=== PATIENT | male | born 1955 | race Caucasian/White ===

== ENCOUNTER → 2021-03-22 08:27 | Outpatient (CLI) | payer OTHER, SELFPAY ==
--- NOTE | 2021-03-22 | DI.RAD.S_ITS ---
PROCEDURE: XR CHEST 2V INDICATIONS: COUGH TECHNIQUE: 2 views of the chest were acquired. COMPARISON: None. FINDINGS: Surgical changes and devices: None. Lungs and pleura: Lungs are clear. No pleural effusions or pneumothorax. Mediastinum: Mediastinal contours are normal. Heart size is normal. Bones and chest wall: No suspicious bony abnormalities. Age-appropriate bony degenerative changes are seen. Soft tissues appear unremarkable. IMPRESSION: No focal infiltrates are seen. Dictated by: Christopher Cordova M.D. on 03/22/2021 at 8:34 Approved by: Christopher Cordova M.D. on 03/22/2021 at 8:35
== END ==
PROVIDERS: PCP Otolaryngology; Referring Provider Otolaryngology; Visit Provider Otolaryngology
DX: R05.9 Cough, unspecified (principal)
CPT/HCPCS: 71046

== ENCOUNTER → 2022-01-03 07:51 | Outpatient (CLI) | payer OTHER, SELFPAY ==
--- NOTE | 2022-01-03 07:54 | DI.RAD.S_ITS ---
PROCEDURE: XR CERVICAL SPINE 2V OR 3V INDICATIONS: CONTUSION OF OTHER PART OF HEAD TECHNIQUE: 3 view(s) of the cervical spine were acquired. COMPARISON: None. FINDINGS: Bones: No fractures or dislocations to the T1 level. Loss of disc height and degenerative endplate changes are seen at C5-6 and C6-7 levels. Bilateral facet hypertrophic changes are noted throughout cervical spine. The lateral masses of C1 appear intact on the odontoid view. No suspicious bony lesions. Soft tissues: No prevertebral soft tissue swelling. 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 No acute fracture or dislocation. Dictated by: Michael Mcdonough M.D. on 01/03/2022 at 9:45 Approved by: Michael Mcdonough M.D. on 01/03/2022 at 9:45
--- NOTE | 2022-01-03 07:55 | DI.RAD.S_ITS ---
PROCEDURE: XR FACIAL BONES <3V INDICATIONS: CONTUSION OF OTHER PART OF HEAD TECHNIQUE: 3 views of the facial bones were acquired. COMPARISON: None. FINDINGS: Sinuses: Visualized sinuses demonstrate no air-fluid levels or mucosal thickening. Bones: No fractures. No suspicious bony lesions. Orbital rims and zygomatic arches appear intact. Soft tissues: No suspicious soft tissue densities. IMPRESSION: No facial bone or nasal bone fracture. Nasal septum is midline. Paranasal sinuses are well aerated. Dictated by: Michael Mcdonough M.D. on 01/03/2022 at 9:44 Approved by: Michael Mcdonough M.D. on 01/03/2022 at 9:45
== END ==
PROVIDERS: PCP Otolaryngology; Referring Provider Physician Assistant Medical; Visit Provider Physician Assistant Medical
DX: S00.83XA Contusion of other part of head, initial encounter (principal); M50.322 Other cervical disc degeneration at C5-C6 level; X58.XXXA Exposure to other specified factors, initial encounter
CPT/HCPCS: 70140; 72040

== ENCOUNTER → 2022-04-11 07:53 | Outpatient (CLI) | payer OTHER, SELFPAY ==
[2022-04-11 08:25] LABS: Add Manual Diff / Slide Review NO; Basophils Absolute Auto 0 /uL (0-100); Basophils Percent Auto 0.5 % (0-2); Eosinophils Absolute Auto 200 /uL (0-450); Eosinophils Percent Auto 3.9 % (2-4); Hematocrit 46.4 % (41-53); Hemoglobin 15.7 g/dL (13.5-17.5); Lymphocytes Absolute Auto 2200 /uL (1100-4500); Lymphocytes Percent Auto 34.9 % (25-40); Mean Corpuscular HGB Conc 33.9 % (30-36); Mean Corpuscular Hemoglobin 32.1 PG (26-34); Mean Corpuscular Volume 94.7 fL (80-100); Monocytes Absolute Auto 600 /uL (0-900); Monocytes Percent Auto 9.8 % (3-14); Neutrophils Absolute Auto 3200 /uL (1500-7000); Neutrophils Percent Auto 50.9 % (50-75); Platelet Count 170 X10^3/uL (150-400); Red Cell Distribution Width 13.3 % (11.6-14.8); White Blood Cell Count 6.2 X10^3/uL (4.5-11.0)
[2022-04-11 08:46] LABS: Alanine Aminotransferase 62 IU/L (<50); Albumin 4.4 g/dL (3.5-5.0); Albumin Globulin Ratio 1.6 (1.0-2.8); Alkaline Phosphatase 39 U/L (38-126); Aspartate Aminotransferase 37 IU/L (17-59); BUN Creatinine Ratio 18.4 (6-22); Bilirubin Total 0.8 mg/dL (0.2-1.3); Blood Urea Nitrogen 19 mg/dL (9-20); Calcium 9.4 mg/dL (8.4-10.2); Carbon Dioxide 31 mmol/L (22-32); Chloride 103 mmol/L (98-107); Cholesterol 267 mg/dL (140-199); Estimated Glomerular Filt Rate > 60 mL/min (>60); Globulin 2.8 g/dL (1.7-4.1); Glucose 97 mg/dL (80-110); HDL Cholesterol 52 mg/dL (40-60); HEMOLYSIS < 15 (0-50); LDL Cholesterol Calculated 163 mg/dL (<100); Potassium 4.6 mmol/L (3.4-5.1); Sodium 141 mmol/L (137-145); Total Protein 7.2 g/dL (6.3-8.2); Triglycerides 258 mg/dL (35-150)
[2022-04-11 09:02] LABS: Vitamin D 25 Hydroxy (D3) 42.6 ng/mL (30.0-100.0)
[2022-04-11 09:19] LABS: TSH w/ Reflex to FT4 3.52 uIU/mL (0.47-4.68)
[2022-04-11 09:20] LABS: Prostate Specific Antigen 0.344 ng/mL (0.10-4.00)
== END ==
PROVIDERS: PCP Otolaryngology; Referring Provider Physician Assistant Medical; Visit Provider Physician Assistant Medical
DX: E78.5 Hyperlipidemia, unspecified (principal); R73.03 Prediabetes; I10 Essential (primary) hypertension; Z12.5 Encounter for screening for malignant neoplasm of prostate; E55.9 Vitamin D deficiency, unspecified
CPT/HCPCS: 36415; 80053; 80061; 82306; 84153; 84443; 85025

== ENCOUNTER → 2022-11-01 07:30 | Outpatient (CLI) | payer MEDICARE, OTHER, SELFPAY ==
--- NOTE | 2022-11-01 07:37 | DI.US.S_ITS ---
PROCEDURE: US SCROTUM INDICATIONS: LEFT SCROTAL SWELLING TECHNIQUE: Real-time scanning was performed of the scrotum and testicles, with image documentation. Color and pulse Doppler interrogation was performed of both testicles. COMPARISON: None. FINDINGS: Right: Testicle is normal in size at 4.8 x 2.8 x 2.6 cm, and homogenous in echotexture. Epididymis is normal in overall size . Heterogeneous right epididymal echotexture is seen. Focal hypoechoic area involving right epididymal head and measures 7 x 7 x 9 mm in size. Internal vascularity is seen. No hydrocele or varicoceles. Overlying scrotal skin is normal in thickness. Left: Testicle is normal in size at 4.1 x 2.7 x 2.7 cm, and homogeneous in echotexture. Epididymis is normal in overall size and morphology. There is large left hydrocele measures up to 9.7 x 7.7 x 4.7 cm in size. No varicoceles. Doppler: Color and pulse Doppler demonstrate normal and symmetric arterial flow in both testicles. IMPRESSION: 1. Normal appearing bilateral testes. 2. Large left scrotal hydrocele as above. 3. Heterogeneous echotexture of right epididymis with questionable solid hyperechoic lesion involving right epididymal head measures 7 x 7 x 9 mm in size. Clinical correlation and sonographic follow-up is recommended. Dictated by: Michael Mcdonough M.D. on 11/01/2022 at 10:15 Approved by: Michael Mcdonough M.D. on 11/01/2022 at 10:17
[2022-11-01 09:04] LABS: Add Manual Diff / Slide Review NO; Basophils Absolute Auto 0 /uL (0-100); Basophils Percent Auto 0.6 % (0-2); Eosinophils Absolute Auto 400 /uL (0-450); Eosinophils Percent Auto 6.3 % (2-4); Hematocrit 44.9 % (41-53); Hemoglobin 15.6 g/dL (13.5-17.5); Lymphocytes Absolute Auto 2000 /uL (1100-4500); Lymphocytes Percent Auto 34.7 % (25-40); Mean Corpuscular HGB Conc 34.7 % (30-36); Mean Corpuscular Hemoglobin 32.9 PG (26-34); Monocytes Absolute Auto 500 /uL (0-900); Monocytes Percent Auto 9.5 % (3-14); Neutrophils Absolute Auto 2800 /uL (1500-7000); Neutrophils Percent Auto 48.9 % (50-75); Platelet Count 171 X10^3/uL (150-400); Red Blood Cell Count 4.72 X10^6/uL (4.5-5.9); Red Cell Distribution Width 13.6 % (11.6-14.8); White Blood Cell Count 5.7 X10^3/uL (4.5-11.0)
[2022-11-01 09:27] LABS: Alanine Aminotransferase 58 IU/L (<50); Albumin 4.4 g/dL (3.5-5.0); Albumin Globulin Ratio 1.6 (1.0-2.8); Alkaline Phosphatase 41 U/L (38-126); Aspartate Aminotransferase 40 IU/L (17-59); BUN Creatinine Ratio 20.4 (6-22); Bilirubin Total 0.7 mg/dL (0.2-1.3); Blood Urea Nitrogen 19 mg/dL (9-20); Calcium 9.5 mg/dL (8.4-10.2); Carbon Dioxide 25 mmol/L (22-32); Chloride 105 mmol/L (98-107); Cholesterol 283 mg/dL (140-199); Estimated Glomerular Filt Rate > 60 mL/min (>60); Globulin 2.8 g/dL (1.7-4.1); Glucose 90 mg/dL (80-110); HDL Cholesterol 47 mg/dL (40-60); HEMOLYSIS 21 (0-50); LDL Cholesterol Calculated 170 mg/dL (<100); Potassium 4.5 mmol/L (3.4-5.1); Sodium 139 mmol/L (137-145); Total Protein 7.2 g/dL (6.3-8.2); Triglycerides 329 mg/dL (35-150)
[2022-11-01 09:41] LABS: Vitamin D 25 Hydroxy (D3) 39.5 ng/mL (30.0-100.0)
[2022-11-01 09:53] LABS: Prostate Specific Antigen 0.465 ng/mL (0.10-4.00)
[2022-11-02 00:05] LABS: Hemoglobin A1C% w Est Avg Glu 5.5 % (4.0-6.0)
== END ==
PROVIDERS: PCP Otolaryngology; Referring Provider Specialist; Visit Provider Specialist
DX: N48.0 Leukoplakia of penis (principal); N43.3 Hydrocele, unspecified; Z12.5 Encounter for screening for malignant neoplasm of prostate; E78.5 Hyperlipidemia, unspecified; I10 Essential (primary) hypertension; E55.9 Vitamin D deficiency, unspecified; R73.03 Prediabetes
CPT/HCPCS: 36415; 76870; 80053; 80061; 82306; 83036; 84153; 84439; 84443; 85025; G0103

== ENCOUNTER 2023-01-01 07:58 | Day surgery (SDC) | payer MEDICARE, OTHER, SELFPAY ==
[2022-12-27 11:46] VITALS: BMI 33.0
[2023-01-01] VITALS (12 sets, daily range): BP systolic 104–186; BP diastolic 57–88; PULSE 12–83; RESP 8–20; TEMP 36.2–36.6; O2SAT 94–99; BMI 33.0
[2023-01-01] MEDS: ACETAMINOPHEN IV 1,000 MG/100 ML VIAL 400 MG IV (08:23)
[2023-01-01] MEDS: LACTATED RINGERS 1,000 ML 42 ML IV (08:30)
--- NOTE | 2023-01-01 08:42 | PM.PREOP ---
Pre-operative Note Interval Note History & Physical reviewed/Exam performed by Physician: Yes Changes to H&P: No
[2023-01-01] MEDS: CEFAZOLIN 2 GM/100 ML PREMIX 100 ML IV (09:30)
--- NOTE | 2023-01-01 09:46 | SUR.OPER ---
Supine on padded OR bed, head on pillow, arms secured on padded arm boards at <90 degrees abduction, legs uncrossed, safety belt at thigh, tape over blanket over lower legs.
[2023-01-01] MEDS: BUPIVACAINE LIPOSOME 266 MG/20 ML VIAL INJ (09:58)
[2023-01-01] MEDS: BUPIVACAINE 0.25% (PF) 30 ML, EPINEPHrine 0.15 MG INJ (10:02)
[2023-01-01] MEDS: NEOMYCIN/POLYMYXIN/BACITRA UD OINT 2 EACH TOP (10:03)
--- NOTE | 2023-01-01 10:46 | P.OP_ITS ---
Operative Date/Time/Diagnoses Date of procedure: 01/01/23 Time of procedure: 10:30 Pre-op diagnosis: 1. Left hydrocele. Post-op diagnosis: same Procedure & Clinicians Procedure: 1. Left hydrocelectomy. Same procedure as scheduled: Yes Indications: 1. Symptomatic left hydrocele. Surgeon: Nithya Mason Click Yes if Unassisted: Yes Anesthesia Type: General and Local (0.25% Marcaine with epinephrine and 1.33% Exparel.) Operative Notes Findings: 1. Normal scrotal tissue planes. 2. Clear straw-colored fluid surrounding testis. Closure Type: primary Specimen(s): none sent Applied: drain(s) (Ten [place] Koby drain to bulb self suction.) Estimated Blood Loss (mL): 1 Blood products transfused: none Procedure in detail: The patient was positioned in supine was administered general anesthesia. The lower abdomen, genitalia, and groin were then prepped and draped in sterile fashion. A solution of 0.25% Marcaine with epinephrine was then used to infiltrate the midline scrotal raphae and subcutaneous dartos fascia. The ca utery pen was then used to divide the skin in the midline skin and subcutaneous dartos tissue to a tissue plane at the level of the tunica vaginalis. The tunica vaginalis was then from the inner scrotal wall with blunt dissection and delivered from the left hemiscrotum. It was then opened in the midline in a proximally 150 cc of clear, straw-colored fluid was drained. A blood bank booking clerk hydrocele repair was then conducted in usual fashion by effacing the everted hydrocele sac to the posterior aspect of the testis and epididymis and then using a 2 0 Monocryl and horizontal mattress from the vicinity of the epididymal tail to location on the cord above the epididymal head. The left testis and cord were then secured to the posterior scrotal wall at the inferior pole and superior pole using 4-0 chromic in anatomic position. 1.33% Exparel was then used to infiltrate the scrotal wall and skin at the left inferior lateral aspect. A 10 [place] Koby drain was then positioned in the left hemiscrotum and brought out through separate stab incision at this location. The drain was secured to the skin using 2-0 silk in Gerry sandal fashion with 2 arms secured to the skin. The midline dartos fascia and skin was then infiltrated with the Exparel anesthetic. The dartos fascia was then closed using running 2-0 Monocryl. The skin was then reapproximated using a running horizontal mattress of 4-0 Monocryl. The skin surface was cleaned and dried. Antibiotic ointment was applied to the incision line and drain site. Dry sterile fluffs was then applied to the patient's scrotum. The patient was then fitted with an athletic supporter. The patient was then awakened transferred to [facility] and transferred to recovery awake and in stable condition. Complications: none Post-operative Condition: stable Disposition: PACU Plan for aftercare: Discharge home.
[2023-01-01] MEDS: OXYCODONE IR 5 MG TABLET PO (10:49)
[2023-01-01] MEDS: hydrOXYzine 50 MG/ML INJ 25 MG IM (10:49)
[2023-01-01] MEDS: HYDROMORPHONE 1 MG INJ IV (10:50)
--- NOTE | 2023-01-01 13:21 | SUR.PHASEII ---
Pt back from the where he sat for long period of time with attempt to void prior to DC (lives in [place] and [place] ferry this [place] Pt unable to void, back to bed. Bladder scan for 233ml. Dressing to scrotum C/D/I. No nausea. See VS. Resting at this time. to pharmacy to pick up driver meds.
== END 2023-01-01 14:24 | disposition home or self-care (01) ==
PROVIDERS: PCP Physician Assistant Medical; Referring Provider Specialist; Visit Provider Specialist
PROC: (CPT 55040; principal; 2023-01-01 09:15)
DX: N43.3 Hydrocele, unspecified (principal); N35.911 Unspecified urethral stricture, male, meatal; N48.0 Leukoplakia of penis
CPT/HCPCS: 55040; C9290; J0131; J0171; J0690; J1100; J1170; J2405; J2704; J3010; J3410

== ENCOUNTER → 2024-06-06 07:41 | Outpatient (CLI) | payer MEDICARE, OTHER, SELFPAY ==
[2024-06-06 08:34] LABS: Add Manual Diff / Slide Review NO; Basophils Absolute Auto 0 /uL (0-100); Basophils Percent Auto 0.7 % (0-2); Eosinophils Absolute Auto 300 /uL (0-450); Eosinophils Percent Auto 5.3 % (2-4); Hematocrit 45.6 % (41-53); Hemoglobin 15.5 g/dL (13.5-17.5); Lymphocytes Absolute Auto 2200 /uL (1100-4500); Lymphocytes Percent Auto 35.4 % (25-40); Mean Corpuscular HGB Conc 33.9 % (30-36); Mean Corpuscular Hemoglobin 32.5 PG (26-34); Mean Corpuscular Volume 95.7 fL (80-100); Monocytes Absolute Auto 600 /uL (0-900); Monocytes Percent Auto 9.5 % (3-14); Neutrophils Absolute Auto 3100 /uL (1500-7000); Neutrophils Percent Auto 49.1 % (50-75); Platelet Count 166 X10^3/uL (150-400); Red Blood Cell Count 4.77 X10^6/uL (4.5-5.9); Red Cell Distribution Width 13.5 % (11.6-14.8); White Blood Cell Count 6.3 X10^3/uL (4.5-11.0)
[2024-06-06 08:52] LABS: Alanine Aminotransferase 91 IU/L (<50); Albumin 4.8 g/dL (3.5-5.0); Albumin Globulin Ratio 1.9 (1.0-2.8); Alkaline Phosphatase 34 U/L (38-126); Aspartate Aminotransferase 63 IU/L (17-59); BUN Creatinine Ratio 25.8 (6-22); Bilirubin Total 1.1 mg/dL (0.2-1.3); Blood Urea Nitrogen 32 mg/dL (9-20); Calcium 9.5 mg/dL (8.4-10.2); Carbon Dioxide 23 mmol/L (22-32); Chloride 106 mmol/L (98-107); Cholesterol 252 mg/dL (140-199); Estimated Glomerular Filt Rate > 60 mL/min (>60); Globulin 2.5 g/dL (1.7-4.1); Glucose 99 mg/dL (80-110); HDL Cholesterol 49 mg/dL (40-60); HEMOLYSIS 73 (0-50); LDL Cholesterol Calculated 164 mg/dL (<100); Potassium 5.1 mmol/L (3.4-5.1); Sodium 139 mmol/L (137-145); Total Protein 7.3 g/dL (6.3-8.2); Triglycerides 196 mg/dL (35-150)
[2024-06-06 08:58] LABS: Rheumatoid Factor < 8.6 IU/mL (<12.0)
[2024-06-06 09:23] LABS: Prostate Specific Antigen 0.455 ng/mL (0.10-4.00)
[2024-06-10 12:12] LABS: ANA Screen, IFA Negative (.)
== END ==
PROVIDERS: PCP Physician Assistant; Referring Provider Physician Assistant; Visit Provider Physician Assistant
DX: M25.50 Pain in unspecified joint (principal); I10 Essential (primary) hypertension; E78.5 Hyperlipidemia, unspecified; Z12.5 Encounter for screening for malignant neoplasm of prostate
CPT/HCPCS: 36415; 80053; 80061; 84153; 85025; 86038; 86430; G0103